=== PATIENT | male | born 1980 | race Caucasian/White ===

== ENCOUNTER 2023-10-19 10:25 | Emergency (ER) | payer OTHER, SELFPAY ==
--- NOTE | ~2023-10-19 | XR_ITS ---
EXAMINATION: X-ray right ankle and right foot CLINICAL INDICATION: Pain, crush injury. COMPARISON: None. TECHNIQUE: 2 views of the right ankle and 3 views of the right foot. FINDINGS: Right ankle: No fractures or subluxation. Normal soft tissues. Right foot: Mildly displaced fracture at the tip of the distal phalanx of the first toe with surrounding soft tissue swelling. No unexpected radiopaque foreign bodies. XR/XR foot RT min 3V IMPRESSION: Fracture of the distal phalanx of the first toe.
--- NOTE | ~2023-10-19 | XR_ITS ---
EXAMINATION: X-ray right ankle and right foot CLINICAL INDICATION: Pain, crush injury. COMPARISON: None. TECHNIQUE: 2 views of the right ankle and 3 views of the right foot. FINDINGS: Right ankle: No fractures or subluxation. Normal soft tissues. Right foot: Mildly displaced fracture at the tip of the distal phalanx of the first toe with surrounding soft tissue swelling. No unexpected radiopaque foreign bodies. XR/XR ankle RT min 3V IMPRESSION: Fracture of the distal phalanx of the first toe.
[2023-10-19 10:36] VITALS: BP 146/80; PULSE 75; RESP 16; TEMP 36.9; O2SAT 97; BMI 25.8
--- NOTE | 2023-10-19 11:31 | ED_ITS ---
HPI - Extremity Injury (Lower) General Chief Complaint: Extremity Injury, Lower Stated Complaint: work inj Time Seen by Provider: 10/19/23 11:20 Source: patient Mode of arrival: ambulatory Limitations: no limitations History of Present Illness HPI Narrative: patient Is a 43-year-old male who presents emergency department for evaluation traumatic right foot injury. Reports approximately 30 minutes prior to arrival he accidentally dropped and an oven onto the right foot Had some initial bleeding, but bleeding has since been controlled. Reports severe pain to the great toe that is radiating up the foot and into the medial ankle. He denies any history of injury to this foot in the past. reports numbness with associated throbbing pain. reports an allergy to morphine, oxycodone, tramadol, ketorolac citing pruritus, hives and inflammation. He reports a history of spinal stenosis, reportedly has been able to take Dilaudid and fentanyl in the past without any complication. He shows me a copy of his medical record revealing that he was prescribed Dilaudid 2 mg tablets in June of 2023. Related Data Previous Rx's ?Medication ?Instructions ?Recorded cephalexin 500 mg capsule 500 mg PO QID #27 caps 10/19/23 hydromorphone 2 mg tablet 2 mg PO Q6H PRN pain #14 tabs 10/19/23 Allergies Allergy/AdvReac Type Severity Reaction Status Date / Time ketorolac [From Toradol] Allergy Hives Verified 10/19/23 10:39 morphine Allergy Hives Verified 10/19/23 10:39 oxycodone Allergy Hives Verified 10/19/23 10:39 tramadol Allergy Hives Verified 10/19/23 10:39 Review of Systems Review of Systems: Yes all other systems are reviewed and are negative PMFSH Past Medical History Attestation statement: The following information was validated with the patient. Source: old records reviewed Medical History (Updated 10/19/23 @ 13:20 by Pat Deshpande CNP) No known health problems Social History Social History Alcohol intake: current Alcohol intake frequency: a few times a month Smoked in Last 30 Days: No Use of substances other than those prescribed or required for medical reasons: No Advance Directives: No Advance Directives Information Provided: No Physical Exam Vital Signs: Vital Signs: Last Vital Signs Temp 98.5 F 10/19/23 14:06 Pulse 75 10/19/23 14:06 Resp 16 10/19/23 14:06 BP 146/80 H 10/19/23 14:06 Pulse Ox 97 10/19/23 14:06 O2 Del Method Room Air 10/19/23 14:06 BMI result Body Mass Index 25.8 Appearance: Alert.?Oriented to person, place and time. No acute distress.?Normal affect. Eyes: Pupils equal, round and reactive to light.? ENT: Pharynx normal.?? Neck: Normal inspection.? Neck supple.?? CVS: Heart sounds normal. Normal heart rate and rhythm.? Pulses normal.?? Respiratory: No respiratory distress.? Lung sounds clear to auscultation bilaterally?? Extremities: localized swelling to the right great toe with ecchymosis, superficial abrasions. Nail plate is intact. No subungual hematoma. 2+ DP/PT pulse bilaterally Neuro: Moves all extremities spontaneously. Sensation intact bilaterally. Ambulates with antalgic gait. Course Reevaluation(s) Reevaluation #1: Received call from patient reporting that [facility] did not receive the prescription for his Dilaudid and requesting it to be sent again. I contacted the [facility] this prescription was sent to per patient request; I have been advised that hydromorphone is on back order at their pharmacy, in additionally as the prescriber (myself ) is not in network for his insurance his insurance will not cover the prescription. Patient was made aware of this, advised that he may also follow-up with his primary care provider /Orthopedics back home for prescription Medications Administered Discontinued Medications Generic Name Dose Route Start Last Admin Trade Name Harriet PRN Reason Stop Dose Admin Cephalexin HCl 500 mg 10/19/23 13:20 10/19/23 13:58 Cephalexin 500 Mg Capsule PO 10/19/23 13:21 500 mg ONCE ONE Administration Hydromorphone HCl 1 mg 10/19/23 11:58 10/19/23 12:09 Hydromorphone Hcl 1 Mg/Ml Syringe IM 10/19/23 11:59 1 mg ONCE ONE Administration Protocol Hydromorphone HCl 2 mg 10/19/23 13:31 10/19/23 13:58 Hydromorphone Hcl 2 Mg Tablet PO 10/19/23 13:32 2 mg ONCE ONE Administration Medical Decision Making Medical Decision Making MDM Narrative: patient is a 43 old male who presents emergency department for evaluation of traumatic right great toe pain as per HPI. He appears significantly uncomfortable at the time my evaluation, there is localized swelling to the right great toe with developing ecchymosis, superficial abrasions that are not amenable to repair with suture. Was cleansed with large volume normal saline and Betadine and use of syringe. Nail plate is intact, thickened nail, but currently without evidence of subungual hematoma. Extremities neurovascularly intact distally. patient reports up-to-date with tetanus vaccination.given patient's allergies as mentioned in HPI, will medicate at this time with Dilaudid IM, reviewed [employer], most recent prescription for Dilaudid 2 mg tablets 08/21/2023. XR was obtained to evaluate for fracture / dislocation versus contusion. XR confirms distal phalanx fracture of the Right great toe. Rocael- taped to the 2nd digit and placed in a postop shoe. He does not reside in this area he is from [place], [place], he was advised to contact his primary care doctor's office to arrange for follow-up with orthopedics near his home. He verbalizes understanding of this. Discussed worrisome signs and symptoms that would warrant re-evaluation. All questions answered. Stable for discharge. Differential Diagnosis Differential Diagnoses: The differential diagnosis associated with the presentation includes ( see narrative above) Independent Interpretation I performed an independent interpretation of an: Plain X-Ray ( right great toe distal phalanx fracture) Radiology Impression Discussion of test interpretation with radiology: I have reviewed the radiologist's reading. Radiologist Impression: XR/XR foot RT min 3V IMPRESSION: Fracture of the distal phalanx of the first toe. External Record Review External record reviewed: Other ([employer] as noted above) Prescription Management I considered prescription management with: Pain Medication Critical Care Time Critical Care Time Critical Care Time: Yes Total Critical Care Time: 35 Attestation: I personally attest to this critical care time spent taking care of the patient exclusive of all other billable procedures was approximately 35 minutes including initial evaluation of patient, ordering tests, x-ray interpretation, hydromorphone pain management, documentation, re-evaluation. Discharge Plan Discharge Clinical Impression: Fracture of right great toe Patient Disposition: Home, Self-Care Instructions: Toe Fracture (ED) Additional Instructions: You can take ibuprofen 200 mg, 3 tablets (600mg) every 6-8 hours as needed for pain, in addition to Tylenol 500 mg, 2 tablets (1,000mg) every 4-6 hours as needed for pain, but not to exceed 3 doses daily (3,000mg).? A prescription for Dilaudid was sent to your pharmacy. This is a narcotic medication. It can be addictive. You should not drive, drink alcohol, or work while taking this medication. Complete the entire course of antibiotics as prescribed. Wear the Provided shoe at all times until evaluated by orthopedics. As discussed, you will need to contact your primary care doctor's office to arrange for a referral to Orthopedics in the area were you reside. You should return to an emergency department for re-evaluation if you have any new or worsening symptoms or concerns such as severe worsening pain, uncontrolled bleeding, extensive redness or swelling moving up the foot, fevers, chills. Prescriptions: New hydromorphone 2 mg tablet 2 mg PO Q6H PRN (Reason: pain) Qty: 14 0RF Rx Instructions: Partial Fill upon patient request. cephalexin 500 mg capsule 500 mg PO QID Qty: 27 0RF Referrals: Physician,Unknown J [Primary Care Provider] - Stand Alone Forms: Work/School Release Interventions: ED Discharge Assessment Last Done: 10/19/23 14:06 Discharge Date/Time: 10/19/23 14:07 Print Language: Wallisian
--- NOTE | 2023-10-19 11:59 | PC.NURSE ---
Provider to bedside for primary eval, awaiting xray, aware of plan of care.
[2023-10-19] MEDS: HYDROmorphone HCl 1 MG/ML SYRINGE IM (12:09)
[2023-10-19 12:35] VITALS: RESP 18
[2023-10-19] MEDS: HYDROmorphone HCl 2 MG TABLET PO (13:58)
[2023-10-19] MEDS: cephALEXin 500 MG CAPSULE PO (13:58)
[2023-10-19 14:06] VITALS: BP 146/80; PULSE 75; RESP 16; TEMP 36.9; O2SAT 97
== END 2023-10-19 14:07 | disposition home or self-care (01) ==
PROVIDERS: Emergency Provider Student in an Organized Health Care Education/Training Program
DX: S92.401A Displaced unspecified fracture of right great toe, initial encounter for closed fracture (principal); M25.571 Pain in right ankle and joints of right foot; Y29.XXXA Contact with blunt object, undetermined intent, initial encounter; Y93.9 Activity, unspecified; Y92.9 Unspecified place or not applicable; Y99.0 Civilian activity done for income or pay
CPT/HCPCS: 73610; 73630; 96372; 99284; J1170